=== PATIENT | male | born 1990 | race Caucasian/White ===

== ENCOUNTER 2016-11-11 19:09 | Inpatient (IN) | payer OTHER ==
[~2016-11-11] VITALS: Ht 172.7 cm; Wt 61.3 kg
[~2016-11-11 19:09] MED LIST: ALLERGY25 M2 PO; Bactrim,Septra Singl PO; CHLORPROMAZINE25 MG PO; CIPRO HC OTIC S10 ML BOTH EARS; COLACE100 MG PO; DAILY MULTIPLE1 EACH PO; DIASTAT ACUDIAL10 MG PR; DOCUSATE SODIU100 MG PO; FLAGYL500 MG PO; FLONASE16 G1 BOTH NARES; FLONASE16 GM BOTH NARES; FLORA-Q CAPSUL1 EACH PO; Flonase BOTH NARES; LAMICTAL XR200 MG PO; LAMICTAL200 MG PO; MULTIVITAMIN1 EAC2 PO; OMNICEF300 M1 PO; PRILOSEC20 MG PO; PROTONIX40 MG PO; THERAGRAN1 TABLET PO; THORAZINE10 MG PO; THORAZINE25 MG PO; THORAZINE50 MG PO; TRILEPTAL300 MG PO; TRILEPTAL75 MG PO; TYLENOL325 M1 PO; Tylenol Regular Stre PO
[2016-11-11 21:12] LABS: ADD MIUA? YES; BILIRUBIN NEGATIVE; BLOOD NEGATIVE; COLOR YELLOW ((YELLOW)); GLUCOSE (STRIP) NEGATIVE; KETONES NEGATIVE; LEUKOCYTES NEGATIVE; NITRITE NEGATIVE; PROTEIN (STRIP) 100; SPECIFIC GRAVITY 1.019 (1.000-1.030); UROBILINOGEN 0.2 MG/DL (0.2-1.0)
[2016-11-11 21:14] LABS: BACTERIA RARE /HPF; EPITHELIAL CELLS NONE SEEN /HPF; MUCUS TRACE /LPF; RED BLOOD CELLS 0-5 /HPF (0-5); UCUL ADDED? NO; WHITE BLOOD CELLS 0-5 /HPF (0-5)
[2016-11-11 21:19] LABS: HEMATOCRIT 41.3 % (38.0-50.0); MCH 30.1 PG (29.0-34.0); MCHC 34.4 G/DL (30.0-36.0); MCV 87.5 FL (86-99); MEAN PLAT.VOLUME 8.4 uM^3 (9.0-12.4); PLATELET COUNT 242 K/uL (156-360); RBC DIS.WIDTH-CV 12.4 % (11.8-14.6); RBC DIS.WIDTH-SD 39.8 % (39-53); RED BLOOD COUNT 4.72 M/uL (4.00-5.50); WHITE BLOOD COUNT 12.3 K/uL (4.1-10.2)
[2016-11-11 21:30] LABS: CHLORIDE 109 mEq/L (99-109); SODIUM 143 mEq/L (136-147)
[2016-11-11 21:32] LABS: GLUCOSE 97 mg/dL (70-99)
[2016-11-11 21:34] LABS: ANION GAP 8 MEQ/L (2-14)
[2016-11-11 21:36] LABS: GFR ESTIMATE (CALCULATED) > 59 mL/min/
[2016-11-11 21:37] LABS: UREA NITROGEN (BUN) 15 mg/dL (9-23)
[2016-11-11 22:11] LABS: TOTAL BILIRUBIN 0.3 mg/dL (0.0-1.0)
[2016-11-11 22:12] LABS: ALKALINE PHOSPHATASE 70 IU/L (3-129)
[2016-11-11 22:14] LABS: PHENOBARBITAL < 5.0 MCG/ML (15-40)
[2016-11-11 22:14] LABS: DIRECT BILIRUBIN 0.1 mg/dL (0.0-0.3)
[2016-11-11] MEDS ORDERED: DEBROX15 ML BOTH EARS (23:42)
[2016-11-11] MEDS ORDERED: LAMICTAL XR100 MG PO (23:43)
[2016-11-11] MEDS ORDERED: VITAMIN D31000 UNI2 PO (23:44)
[2016-11-11] MEDS ORDERED: PRILOSEC OTC20 MG PO (23:44)
[2016-11-11] MEDS ORDERED: THORAZINE10 MG PO (23:45)
[2016-11-11] MEDS ORDERED: FLONASE16 G1 BOTH NARES (23:45)
[2016-11-11] MEDS ORDERED: LAMICTAL XR200 MG PO (23:46)
[2016-11-11] MEDS ORDERED: TEMOVATE 0.05%15 G1 TP (23:47)
[2016-11-11] MEDS ORDERED: CYPROHEPTADINE H4 MG PO (23:47)
[2016-11-11] MEDS ORDERED: TYLENOL REGULA325 MG PO (23:48)
[2016-11-11] MEDS ORDERED: TERA TP (23:48)
[2016-11-11] MEDS ORDERED: DIAZEPAM10 MG PO (23:49)
[2016-11-11] MEDS ORDERED: BENADRYL25 MG PO (23:49)
[2016-11-11] MEDS ORDERED: CLARITIN,ALAVAR10 MG PO (23:50)
[2016-11-11] MEDS ORDERED: PEPTO BISMOL262 MG PO (23:52)
[2016-11-11] MEDS ORDERED: NEOMYCIN-POLYMY10 ML BOTH EARS (23:52)
[2016-11-11] MEDS ORDERED: SUDOGEST60 MG PO (23:53)
[2016-11-11] MEDS ORDERED: MIRALAX255 GM PO (23:53)
[2016-11-11] MEDS ORDERED: TRIAZOLAM0.25 MG PO (23:54)
[2016-11-11] MEDS ORDERED: VALTREX1000 MG PO (23:55)
[2016-11-12 13:16] VITALS: BP 98/53
[2016-11-12 14:43] LABS: EOSINOPHIL (%) 1.6 % (0-5); EOSINOPHIL COUNT 0.1 K/uL (0-0.3); HEMATOCRIT 36.6 % (38.0-50.0); IMMATURE GRANULOCYTE (%) 0.2 % (0.0-0.7); INSTRUMENT ABS NEUTROPHIL CT 3.1 K/uL; LYMPHOCYTE COUNT 2.5 K/uL (1.0-2.8); MCH 29.9 PG (29.0-34.0); MCHC 33.6 G/DL (30.0-36.0); MCV 89.1 FL (86-99); MEAN PLAT.VOLUME 8.5 uM^3 (9.0-12.4); MONOCYTE (%) 8.1 % (3-12); MONOCYTE COUNT 0.5 K/uL (0-0.8); NEUTROPHIL (%) 49.9 % (45-76); NEUTROPHIL COUNT 3.1 K/uL (1.8-6.4); PLATELET COUNT 204 K/uL (156-360); RBC DIS.WIDTH-CV 12.9 % (11.8-14.6); RBC DIS.WIDTH-SD 42.2 % (39-53); RED BLOOD COUNT 4.11 M/uL (4.00-5.50); WHITE BLOOD COUNT 6.2 K/uL (4.1-10.2)
[2016-11-12 14:59] LABS: ANION GAP 6 MEQ/L (2-14); CHLORIDE 110 MEQ/L (99-109); GFR ESTIMATE (CALCULATED) > 59 mL/min/; GLUCOSE 104 mg/dL (70-99); POTASSIUM 3.9 MEQ/L (3.7-5.4); SAMPLE HEMOLYSIS CHECK 0; SAMPLE ICTERIC CHECK 0; SAMPLE LIPEMIA CHECK 0; SODIUM 144 MEQ/L (136-147); UREA NITROGEN (BUN) 11 mg/dL (9-23)
[2016-11-12 16:04] VITALS: BP 91/43
[2016-11-12 19:31] VITALS: BP 100/59
[2016-11-12 23:16] VITALS: BP 113/55
[2016-11-13 07:00] VITALS: BP 133/54
[2016-11-13] MEDS ORDERED: CORTISPORI200 DROPS/ BOTH EARS (12:06)
[2016-11-13] MEDS ORDERED: CEFTIN500 MG PO (12:07)
== END 2016-11-13 14:52 | disposition home or self-care (01) | DRG 101 ==
LOC: EME 19:09 → 2EAST 11-12 02:19 → EDOF 11-12 02:19 → 2EAST 11-12 13:01
PROVIDERS: Emergency Medicine; Student in an Organized Health Care Education/Training Program
DX: G40.909 Epilepsy, unspecified, not intractable, without status epilepticus (principal); F84.0 Autistic disorder; H73 Other disorders of tympanic membrane; K21.9 Gastro-esophageal reflux disease without esophagitis; N61.0 Mastitis without abscess; H72.91 Unspecified perforation of tympanic membrane, right ear; H66.93 Otitis media, unspecified, bilateral; F79 Unspecified intellectual disabilities; J34.2 Deviated nasal septum; H70.001 Acute mastoiditis without complications, right ear
CPT/HCPCS: 70450; 70486; 71010; 80048; 80076; 80156; 80175 90; 80184; 80185; 81003; 85025; 85027; 93005; 99281; 99283; J0696; J1644; J2270; J2405; J7030; J7050; Q0161

== ENCOUNTER 2017-10-04 10:45 | Emergency (ER) | payer OTHER ==
[~2017-10-04] VITALS: Ht 175.3 cm; Wt 61.3 kg
[~2017-10-04 10:45] MED LIST changes: +BENADRYL25 MG PO; +CEFTIN500 MG PO; +CLARITIN,ALAVAR10 MG PO; +CORTISPORI200 DROPS/ BOTH EARS; +CYPROHEPTADINE H4 MG PO; +DEBROX15 ML BOTH EARS; +DIAZEPAM10 MG PO; +LAMICTAL XR100 MG PO; +MIRALAX255 GM PO; +NEOMYCIN-POLYMY10 ML BOTH EARS; +PEPTO BISMOL262 MG PO; +PRILOSEC OTC20 MG PO; +SUDOGEST60 MG PO; +TEMOVATE 0.05%15 G1 TP; +TERA TP; +TRIAZOLAM0.25 MG PO; +TYLENOL REGULA325 MG PO; +VALTREX1000 MG PO; +VITAMIN D31000 UNI2 PO
[2017-10-04 11:33] LABS: HEMATOCRIT 43.4 % (38.0-50.0); HEMOGLOBIN 15.3 G/DL (12.5-16.6); MCH 30.5 PG (29.0-34.0); MCHC 35.3 G/DL (30.0-36.0); MCV 86.6 FL (86-99); PLATELET COUNT 232 K/uL (156-360); RBC DIS.WIDTH-CV 11.9 % (11.8-14.6); RBC DIS.WIDTH-SD 37.2 % (39-53); RED BLOOD COUNT 5.01 M/uL (4.00-5.50); WHITE BLOOD COUNT 6.3 K/uL (4.1-10.2)
[2017-10-04 11:42] LABS: CHLORIDE 104 mEq/L (99-109); POTASSIUM 4.1 mEq/L (3.7-5.4); SODIUM 142 mEq/L (136-147)
[2017-10-04 11:44] LABS: GLUCOSE 103 mg/dL (70-99)
[2017-10-04 11:48] LABS: CREATININE 1.2 mg/dL (0.6-1.3); GFR ESTIMATE (CALCULATED) > 59 mL/min/ (58.99-99999)
[2017-10-04 11:49] LABS: UREA NITROGEN (BUN) 14 mg/dL (9-23)
[2017-10-04 12:34] LABS: ABS NEUTROPHIL COUNT 4.2; ATYPICAL LYMPHOCYTE 5.3 %; EOSINOPHIL ABS CT 0; LYMPHOCYTES 24.5 % (15.0-45.0); MONOCYTES 3.5 % (0-9.0); OVALOCYTES 1+; PLAT.SUFFICIENCY ADEQUATE; SEG.NEUTROPHILS 66.7 % (46.0-76.0)
[2017-10-04] MEDS ORDERED: FLEXERIL10 MG PO (12:38)
[2017-10-04] MEDS ORDERED: MOTRIN800 MG PO (12:38)
[2017-10-04 13:08] VITALS: BP 120/99
== END 2017-10-04 13:10 | disposition home or self-care (01) ==
LOC: EME 10:45
PROVIDERS: Emergency Medicine
DX: F79 Unspecified intellectual disabilities (principal); T14.8XXA Other injury of unspecified body region, initial encounter; F84.0 Autistic disorder; K21.9 Gastro-esophageal reflux disease without esophagitis; R56.9 Unspecified convulsions; Z88.0 Allergy status to penicillin; Z88.8 Allergy status to other drugs, medicaments and biological substances
CPT/HCPCS: 71045; 80048; 85025; 99281; 99284